=== PATIENT | female | born 1950 | race Caucasian/White ===

== ENCOUNTER 2020-04-27 12:13 | Observation (INO) ==
[2020-04-27] MEDS ORDERED: Ondansetron 4 MG/2 ML VIAL IVP ONE (12:23)
[2020-04-27] MEDS ORDERED: Morphine Sulfate 2 MG/ML SYRINGE IVP ONE (12:23)
[2020-04-27 13:12] LABS: Basophils # 0.1 K/mcL (0.0-0.2); Basophils % 0.6 %; Eosinophils # 0.1 K/mcL (0.0-0.6); Eosinophils % 0.6 %; Hematocrit 38.9 % (35.3-44.9); Hemoglobin 12.6 g/dL (11.5-15.4); Immature Granulocytes % 0.6 % (0-4); Lymphocytes # 1.6 K/mcL (0.6-4.6); Lymphocytes % 13.5 %; Mean Corpuscular HGB Conc 32.4 g/dL (31.6-35.5); Mean Corpuscular Volume 89.6 fL (83.0-100.0); Mean Platelet Volume 10.6 fL (9.4-12.4); Monocytes # 1.1 K/mcL (0.0-1.3); Monocytes % 9.2 %; Neutrophils # 8.9 K/mcL (1.6-8.9); Platelet Count 387 K/mcL (140-400); Red Blood Count 4.34 M/mcL (3.82-4.97); Red Cell Distribution Width 12.9 % (11.5-14.5); Segmented Neutrophils % 75.5 %; White Blood Count 11.8 K/mcL (4.3-11.1)
[2020-04-27 13:18] LABS: INR 1.2; Prothrombin Time 13.8 Seconds (9.4-12.1)
[2020-04-27 13:21] LABS: Activated Partial Thrombo Time 31.6 Seconds (26.0-36.0)
[2020-04-27 13:28] LABS: BUN/Creatinine Ratio 28 (6-26); Blood Urea Nitrogen 21 mg/dL (8-23); Carbon Dioxide 30 mEq/L (23-29); Chloride 92 mEq/L (98-107); Glucose 163 mg/dL (70-105); Osmolality,Calculated 283 (280-300); Potassium 4.1 mEq/L (3.5-5.1); Sodium 133 mEq/L (136-145); Troponin I 0.03 ng/mL (< 0.04); eGFR For African Americans > 60 (> 60); eGFR For Non-African Americans > 60 (> 60)
[2020-04-27] MEDS ORDERED: Ondansetron 4 MG/2 ML VIAL IVP PRN (14:42)
[2020-04-27] MEDS ORDERED: Naloxone 0.4 MG/ML INJ IVP PRN (14:43)
[2020-04-27] MEDS ORDERED: Acetaminophen 325 MG TABLET PO PRN (14:43)
[2020-04-27] MEDS ORDERED: Dextrose Gel 15 GM/37.5 ML TUBE PO PRN ×2 (14:44)
[2020-04-27] MEDS ORDERED: *HR* Dextrose 50 % in Water (Vial) 50 ML VIAL IVP PRN (14:44)
[2020-04-27] MEDS ORDERED: D5% in Water 1,000 ML IVC PRN (14:44)
[2020-04-27] MEDS ORDERED: 0.9 % Sodium Chloride 1,000 ML IVC SCH (14:45)
[2020-04-27] MEDS ORDERED: Perflutren Lipid Microsphere 1.3 ML in 0.9 % Sodium Chloride 8.7 ML IVP PRN (15:13)
[2020-04-27] MEDS: *HR* HYDROcodone/Acet 5/325 mg TABLET PO PRN (16:21)
[2020-04-27] MEDS ORDERED: *HR* LORazepam 2 MG/ML VIAL IVP ONE (22:27)
[2020-04-27] MEDS: *HR* Heparin 5,000 UNIT/ML VIAL SQ SCH (22:59)
[2020-04-28 06:39] LABS: Calcium 9.1 mg/dL (8.6-10.3); Potassium 4.3 mEq/L (3.5-5.1)
[2020-04-28 06:54] LABS: Basophils # 0.1 K/mcL (0.0-0.2); Basophils % 0.8 %; Eosinophils # 0.1 K/mcL (0.0-0.6); Eosinophils % 1.1 %; Hematocrit 35.5 % (35.3-44.9); Hemoglobin 11.4 g/dL (11.5-15.4); Immature Granulocytes % 0.7 % (0-4); Lymphocytes # 1.5 K/mcL (0.6-4.6); Lymphocytes % 17.3 %; Mean Corpuscular HGB Conc 32.1 g/dL (31.6-35.5); Mean Corpuscular Hemoglobin 29.4 pg (28.0-33.3); Mean Corpuscular Volume 91.5 fL (83.0-100.0); Mean Platelet Volume 10.3 fL (9.4-12.4); Monocytes # 0.8 K/mcL (0.0-1.3); Neutrophils # 6.3 K/mcL (1.6-8.9); Platelet Count 335 K/mcL (140-400); Red Blood Count 3.88 M/mcL (3.82-4.97); Red Cell Distribution Width 13.1 % (11.5-14.5); Segmented Neutrophils % 71.1 %; White Blood Count 8.8 K/mcL (4.3-11.1)
[2020-04-28] MEDS: *HR* Heparin 5,000 UNIT/ML VIAL SQ SCH ×3 (06:56→22:08)
[2020-04-28] MEDS ORDERED: 0.9 % Sodium Chloride 1,000 ML IVC SCH (08:00)
[2020-04-28] MEDS: Insulin LISPRO 300 UNITS/3 ML VIAL SQ SCH ×4 (09:25→22:07)
[2020-04-28] MEDS: atenoloL 50 MG TABLET PO SCH (09:26)
[2020-04-28] MEDS: Cholecalciferol (D-3) 1,000 UNIT (25MCG) TABLET PO SCH (09:27)
[2020-04-28] MEDS: allopurinoL 100 MG TABLET PO SCH (09:27)
[2020-04-28] MEDS: hydroCHLOROthiazide 25 MG TABLET PO SCH (09:32)
[2020-04-28] MEDS: lisinopriL 20 MG TABLET PO SCH (09:33)
[2020-04-28] MEDS: *HR* HYDROcodone/Acet 5/325 mg TABLET PO PRN (11:49)
[2020-04-28] MEDS ORDERED: *HR* HYDROcodone/Acet 10/325 mg TABLET PO PRN (17:27)
[2020-04-29 04:40] LABS: Basophils # 0.1 K/mcL (0.0-0.2); Basophils % 0.5 %; Eosinophils # 0.2 K/mcL (0.0-0.6); Eosinophils % 2.2 %; Hematocrit 36.6 % (35.3-44.9); Hemoglobin 11.4 g/dL (11.5-15.4); Lymphocytes # 1.8 K/mcL (0.6-4.6); Lymphocytes % 20.1 %; Mean Corpuscular HGB Conc 31.1 g/dL (31.6-35.5); Mean Corpuscular Hemoglobin 28.1 pg (28.0-33.3); Mean Corpuscular Volume 90.1 fL (83.0-100.0); Mean Platelet Volume 10.4 fL (9.4-12.4); Monocytes # 0.9 K/mcL (0.0-1.3); Monocytes % 9.4 %; Neutrophils # 6.1 K/mcL (1.6-8.9); Platelet Count 323 K/mcL (140-400); Red Blood Count 4.06 M/mcL (3.82-4.97); Red Cell Distribution Width 12.9 % (11.5-14.5); Segmented Neutrophils % 66.8 %; White Blood Count 9.2 K/mcL (4.3-11.1)
[2020-04-29 04:53] LABS: BUN/Creatinine Ratio 30 (6-26); Blood Urea Nitrogen 24 mg/dL (8-23); Carbon Dioxide 31 mEq/L (23-29); Chloride 93 mEq/L (98-107); Glucose 114 mg/dL (70-105); Osmolality,Calculated 277 (280-300); Potassium 4.3 mEq/L (3.5-5.1); Sodium 131 mEq/L (136-145); eGFR For African Americans > 60 (> 60); eGFR For Non-African Americans > 60 (> 60)
[2020-04-29] MEDS ORDERED: *HR* LORazepam 0.5 MG TABLET PO ONE (05:38)
[2020-04-29] MEDS: *HR* Heparin 5,000 UNIT/ML VIAL SQ SCH ×3 (06:07→22:18)
[2020-04-29] MEDS: Insulin LISPRO 300 UNITS/3 ML VIAL SQ SCH ×3 (08:50→16:49)
[2020-04-29] MEDS: atenoloL 50 MG TABLET PO SCH (09:08)
[2020-04-29] MEDS: allopurinoL 100 MG TABLET PO SCH (09:08)
[2020-04-29] MEDS: Cholecalciferol (D-3) 1,000 UNIT (25MCG) TABLET PO SCH (09:09)
[2020-04-29] MEDS: *HR* HYDROcodone/Acet 5/325 mg TABLET PO PRN ×2 (15:48→22:17)
[2020-04-29] MEDS ORDERED: Nystatin POWDER 30 GM BOTTLE TP PRN (17:51)
[2020-04-30] MEDS: *HR* HYDROcodone/Acet 5/325 mg TABLET PO PRN (06:03)
[2020-04-30] MEDS: Insulin LISPRO 300 UNITS/3 ML VIAL SQ SCH ×3 (09:30→17:14)
[2020-04-30] MEDS: *HR* Heparin 5,000 UNIT/ML VIAL SQ SCH ×2 (09:30→16:30)
[2020-04-30] MEDS: allopurinoL 100 MG TABLET PO SCH (09:31)
[2020-04-30] MEDS: Cholecalciferol (D-3) 1,000 UNIT (25MCG) TABLET PO SCH (09:31)
[2020-04-30] MEDS: lisinopriL 20 MG TABLET PO SCH (09:31)
[2020-04-30] MEDS: atenoloL 50 MG TABLET PO SCH (09:31)
[2020-04-30] MEDS: hydroCHLOROthiazide 25 MG TABLET PO SCH (09:32)
[2020-04-30 14:30] VITALS: BP 131/60
[2020-05-01] MEDS ORDERED: FLUoxetine 20 MG CAPSULE PO SCH (09:00)
== END 2020-04-30 19:45 ==
LOC: EMEROOARM 12:13 → 3NENU 12:13 → SUATTDRO 16:12 → 3NENU 18:21
PROVIDERS: ADMIT Pharmacist; ATTEND Internal Medicine